=== PATIENT | male | born 1970 | race Two or more races ===

== ENCOUNTER 2018-09-22 15:23 | Outpatient (CLI) | payer OTHER ==
[~2018-09-22 15:23] MED LIST: CATAFLAN PO
== END 2018-09-22 15:37 | disposition home or self-care (01) ==
LOC: RAD 501 15:23
DX: M25.561 Pain in right knee (principal); M79.645 Pain in left finger(s)

== ENCOUNTER 2020-10-20 11:41 | Outpatient (CLI) | payer OTHER | END 2020-10-20 14:02 | disposition home or self-care (01) | LOC: RAD 11:41 | PROVIDERS: ATTEND Orthopaedic Surgery | DX: Z96.642 Presence of left artificial hip joint (principal) ==

== ENCOUNTER → 2020-10-31 | Outpatient (CLI) | payer OTHER | END | disposition home or self-care (01) | LOC: RAD 12:26 | PROVIDERS: ATTEND Orthopaedic Surgery | DX: M25.522 Pain in left elbow (principal); M79.642 Pain in left hand; M65.332 Trigger finger, left middle finger; M17.12 Unilateral primary osteoarthritis, left knee; M79.671 Pain in right foot ==